=== PATIENT | female | born 1955 | race Caucasian/White ===

== ENCOUNTER → 2016-09-30 | Outpatient (CLI) | payer OTHER ==
--- NOTE | 2016-09-30 10:25 | CT ---
EXAMINATION TYPE: CT abdomen pelvis wo con DATE OF EXAM: 09/30/2016 COMPARISON: 06/24/2015 HISTORY: Skin abscess CT DLP: 2573 mGycm Examination of the solid and hollow viscera is limited given the lack of contrast. FINDINGS: LUNG BASES: No evidence for nodule. No evidence for infiltrate. LIVER/GB: Cholecystectomy clips are noted. No space-occupying hepatic lesion. PANCREAS: No pancreatic mass identified. No inflammatory process seen. SPLEEN: No evidence for splenomegaly. No intrasplenic lesions seen. ADRENALS: No adrenal nodules identified. No evidence for thickening. KIDNEYS: There is dilatation of the left renal pelvis with dependent calcifications noted with 3 in n umber measuring up to 5.5 mm. This is likely related to congenital UPJ obstruction as an obstructing calculus is not appreciated with certainty. Low attenuating lesion upper pole left kidney may reflect cysts. Left upper pole nephrolithiasis identified. The right kidney is unremarkable. BOWEL: Appendix has a normal appearance. No evidence of bowel obstruction. No inflammatory process. M oderate sigmoid diverticulosis without diverticulitis. Lymph nodes: No evidence for adenopathy greater than 1 cm. Abdominal aorta: Atheromatous changes seen. No evidence for aneurysm. Genital organs: Status post hysterectomy. No adnexal masses identified. Other: Continued soft tissue thickening along the low midline anterior abdominal wall. No definite co llection identified to suggest abscess. Midline fat-containing abdominal wall hernia is unchanged hari dy. Severe degenerative change lumbar spine with grade 1 anterolisthesis L4 and 5 measuring 3 mm. IMPRESSION: 1.Continued soft tissue thickening along the low midline anterior abdominal wall. No definite collect ion identified to suggest abscess. 2.Midline fat-containing abdominal wall hernia is unchanged study. 3. 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
== END | disposition home or self-care (01) ==
LOC: RADCTMAIN 09:25
PROVIDERS: ATTEND Surgery
DX: K43.9 Ventral hernia without obstruction or gangrene (principal)
CPT/HCPCS: 74176

== ENCOUNTER → 2017-04-02 | Outpatient (CLI) | payer OTHER ==
--- NOTE | 2017-04-06 07:36 | MM ---
Reason for exam: additional evaluation requested from abnormal screening. Last mammogram was performed 1 month ago. History: Patient is postmenopausal and has history of ovarian cancer at age 36. Family history of breast cancer in maternal aunt. 2 excisional biopsies of the left breast, 1985. Took estrogen beginning at age 36. Physical Findings: Nurse did not find any significant physical abnormalities on exam. MG Work Up Mamm w CAD BILAT Bilateral spot compression CC, spot compression MLO, and ML view(s) were taken. Prior study comparison: March 16, 2017, bilateral MG screening mammo w CAD. Nodularity persists x 2. These results were verbally communicated with the patient and result sheet given to the patient on 04/02/17. ASSESSMENT: Incomplete: need additional imaging evaluation, BI-RAD 0 RECOMMENDATION: Ultrasound of both breasts.
--- NOTE | 2017-04-06 07:39 | USB ---
Reason for exam: additional evaluation requested from abnormal screening. History: Patient is postmenopausal and has history of ovarian cancer at age 36. Family history of breast cancer in maternal aunt. 2 excisional biopsies of the left breast, 1985. Took estrogen beginning at age 36. US Breast Workup RAFFI Right breast ultrasound includes all four quadrants, the retroareolar region and axilla. Finding demonstrates a 6 x 3 x 8mm lobular, mixed lesion at 3 o'clock, a 5 x 3 x 6mm oval, cystic lesion at 5 o'clock and a 8 x 4 x 6mm oval lesion at 7 o'clock. Left breast ultrasound includes all four quadrants, the retroareolar region and axilla. Finding demonstrates a 5 x 4 x 4mm lobular, hypoechoic lesion at 1 o'clock, a 6 x 4 x 5mm lobular, mixed lesion at 1 o'clock and a 7 x 4 x 11mm lobular mixed lesion at 11 o'clock. These results were verbally communicated with the patient and result sheet given to the patient on 04/02/17. ASSESSMENT: Probably benign, BI-RAD 3 RECOMMENDATION: Follow-up diagnostic mammogram of both breasts in 6 months. Ultrasound of the left breast in 6 months.
== END | disposition home or self-care (01) ==
LOC: RADMAMWWP 12:57
PROVIDERS: ATTEND Family Medicine
DX: R92.8 Other abnormal and inconclusive findings on diagnostic imaging of breast (principal); Z80.3 Family history of malignant neoplasm of breast
CPT/HCPCS: 76641; G0204